=== PATIENT | male | born 1930 | race Caucasian/White ===

== ENCOUNTER 2019-09-18 10:23 | Emergency (ER) | payer OTHER ==
[2019-09-18] MEDS ORDERED: TRAMADOL HCL 50 MG TAB ONE (11:36)
--- NOTE | 2019-09-18 14:15 | RAD REPORT ---
EXAM DESCRIPTION: MRI - Hip Left Wo Cont - 09/18/2019 1:41 pm CLINICAL HISTORY: Left hip pain COMPARISON: none TECHNIQUE: Axial, sagittal, and coronal magnetic images of the left hip obtained FINDINGS: T1 weighted sequences demonstrate diminished signal throughout the bones probably red catracho ow reconversion. No fracture or dislocation No evidence of avascular necrosis. Mild osteoarthritis involves the hips mainly consisting joint space narrowing. No significant joint effusion Muscles normal caliber and signal IMPRESSION: Mild osteoarthritis involves the hips
--- NOTE | 2019-09-18 14:37 | EDPHYS ---
Physician Documentation [facility] Name: Chris Collins Age: 89 yrs Sex: Male : 1930 Arrival Date: 09/18/2019 Time: 10:25 Bed 13 Private MD: ED Physician Tom Agustin HPI: 09/17 12:05 This 89 yrs old Male presents to ER via Wheelchair with complaints of Hip kb Pain. 12:05 The patient or guardian reports pain. that occurred at home, sustained from no cause kb There is no obvious deformity, The patient is able to self ambulate. The patient is able to bear their full body weight. The patient's discomfort radiates to the left leg. The complaints affect the left gluteus rubén. Onset: The symptoms/episode began/occurred 2 week(s) ago. Modifying factors: The symptoms are alleviated by nothing, the symptoms are aggravated by nothing. Associated signs and symptoms: Loss of consciousness: the patient experienced no loss of consciousness, Pertinent positives: None. Pertinent negatives: altered mental status, fever, incontinence, weakness. Severity of symptoms: At their worst the symptoms were moderate, in the emergency department the symptoms are unchanged. The patient has not experienced similar symptoms in the past. The patient has not recently seen a physician. Pt reports he stepped out of bed 2 weeks ago and felt like he got hit in the left buttock with a hammer. States the pain has persisted since then to left buttock/left lateral hip. States the pain radiates down leg at times. Denies any other symptoms. Pt ambulatory with cane. . Historical: - Allergies: 11:06 No Known Allergies; jl7 - Home Meds: 11:06 amlodipine 5 mg tab [Active]; jl7 - PMHx: 11:06 Hypertension; lung cancer; jl7 - PSHx: 11:06 Lobectomy; jl7 - Immunization history:: Adult Immunizations up to date. - Social history:: Smoking status: Patient denies any tobacco usage or history of. ROS: 12:02 Constitutional: Negative for fever, chills, and weight loss, ENT: Negative for injury, kb pain, and discharge, Neck: Negative for injury, pain, and swelling, Cardiovascular: Negative for chest pain, palpitations, and edema, Respiratory: Negative for shortness of breath, cough, wheezing, and pleuritic chest pain, Abdomen/GI: Negative for abdominal pain, nausea, vomiting, diarrhea, and constipation, Back: Negative for injury and pain, : Negative for injury, bleeding, discharge, and swelling, Skin: Negative for injury, rash, and discoloration, Neuro: Negative for headache, weakness, numbness, tingling, and seizure. 12:02 MS/extremity: Positive for pain, tenderness, of the left gluteus rubén. Exam: 12:02 Constitutional: This is a well developed, well nourished patient who is awake, alert, kb and in no acute distress. Chest/axilla: Normal chest wall appearance and motion. Nontender with no deformity. No lesions are appreciated. Cardiovascular: Regular rate and rhythm with a normal S1 and S2. No gallops, murmurs, or rubs. Normal PMI, no JVD. No pulse deficits. Respiratory: Lungs have equal breath sounds bilaterally, clear to auscultation and percussion. No rales, rhonchi or wheezes noted. No increased work of breathing, no retractions or nasal flaring. Abdomen/GI: Soft, non-tender, with normal bowel sounds. No distension or tympany. No guarding or rebound. No evidence of tenderness throughout. Skin: Warm, dry with normal turgor. Normal color with no rashes, no lesions, and no evidence of cellulitis. Neuro: Awake and alert, GCS 15, oriented to person, place, time, and situation. Cranial nerves II-XII grossly intact. Motor strength 5/5 in all extremities. Sensory grossly intact. Cerebellar exam normal. Normal gait. 12:02 Musculoskeletal/extremity: Extremities: grossly normal except: noted in the left gluteus rubén: pain, tenderness, ROM: intact in all extremities, Circulation is intact in all extremities. Sensation intact. Weight bearing: can bear weight with assistance only, uses cane. Vital Signs: 11:01 BP 142 / 94; Pulse 50; Resp 19; Temp 98.2; Pulse Ox 99% ; Pain 10/10; jl7 MDM: 11:08 Patient medically screened. kb 12:00 Data reviewed: vital signs, nurses notes. Data interpreted: Pulse oximetry: on room air kb is 99 %. Interpretation: normal. 14:31 Counseling: I had a detailed discussion with the patient and/or guardian regarding: the kb historical points, exam findings, and any diagnostic results supporting the discharge/admit diagnosis, radiology results, the need for outpatient follow up, a family practitioner, to return to the emergency department if symptoms worsen or persist or if there are any questions or concerns that arise at home. 09/17 12:07 Order name: Hip Left Wo Cont; Complete Time: 14:31 EDMS Administered Medications: 11:33 Drug: traMADol 50 mg Route: PO; iw Disposition: 16:16 Co-signature as Attending Physician, Tom Agustin MD I agree with the assessment and kdr plan of care. Disposition: 09/18/19 14:36 Discharged to Home. Impression: Sciatica, left side. - Condition is Stable. - Discharge Instructions: Sciatica, [id number]. - Prescriptions for Skelaxin 800 mg Oral Tablet - take 1 tablet by ORAL route every 8 hours As needed; 30 tablet. Tramadol 50 mg Oral Tablet - take 1 tablet by ORAL route every 8 hours as needed; 12 tablet. - Medication Reconciliation Form, Thank You Letter, Antibiotic Education, Prescription Opioid Use form. - Follow up: Emergency Department; When: As needed; Reason: Worsening of condition. Follow up: Private Physician; When: 2 - 3 days; Reason: Recheck today's complaints, Continuance of care, Re-evaluation by your physician. Signatures: Dispatcher [employer] EDCA Caitie Navarrete, ELECTRIC POWER SUPERINTENDENT-C ELECTRIC POWER SUPERINTENDENT-Ckb Tom Agustin MD MD kdr Danette Walter RN RN Lynne Mayorga RN RN jl7 Cristiano Velez formerly [facility] Corrections: (The following items were deleted from the chart) 12:02 11:53 CT LEFT HIP WO CONTRAST ordered. [facility] 12:05 12:02 Hip Left Wo Con ordered. [facility] 12:09 11:20 Hip Left 2 View+RAD.RAD.BRZ ordered. [facility] 14:56 14:36 09/18/2019 14:36 Discharged to Home. Impression: Sciatica, left side. Condition dh4 is Stable. Forms are Medication Reconciliation Form, Thank You Letter, Antibiotic Education, Prescription Opioid Use. Follow up: Emergency Department; When: As needed; Reason: Worsening of condition. Follow up: Private Physician; When: 2 - 3 days; Reason: Recheck today's complaints, Continuance of care, Re-evaluation by your physician. kb
--- NOTE | 2019-09-18 14:37 | ER ---
Nurse's Notes [facility] Name: Chris Collins Age: 89 yrs Sex: Male : 1930 Arrival Date: 09/18/2019 Time: 10:25 Bed 13 Private MD: Diagnosis: Sciatica, left side Presentation: 09/17 11:01 Chief complaint: Patient states: Left hip pain x 2 weeks, denies trauma, reports jl7 difficulty bearing weight. Coronavirus screen: Proceed with normal triage. Patient denies a cough. Patient denies shortness of breath or difficulty breathing. Patient denies measured and/or subjective temperature greater than 100.4F prior to today's visit. Patient denies travel on a cruise ship or to a country the [facility] currently lists as an affected area. Patient denies contact with known and/or suspected case of COVID-19. Ebola Screen: No symptoms or risks identified at this time. Initial Sepsis Screen: Does the patient meet any 2 criteria? No. Patient's initial sepsis screen is negative. Does the patient have a suspected source of infection? No. Patient's initial sepsis screen is negative. Risk Assessment: Do you want to hurt yourself or someone else? Patient reports no desire to harm self or others. Onset of symptoms was September 02, 2019. Care prior to arrival: None. 11:01 Method Of Arrival: Wheelchair jl7 11:01 Acuity: ANASTASIA 4 jl7 Triage Assessment: 11:06 General: Appears in no apparent distress. uncomfortable, Behavior is calm, cooperative, jl7 appropriate for age. Pain: Complains of pain in left hip Pain currently is 10 out of 10 on a pain scale. Historical: - Allergies: 11:06 No Known Allergies; jl7 - Home Meds: 11:06 amlodipine 5 mg tab [Active]; jl7 - PMHx: 11:06 Hypertension; lung cancer; jl7 - PSHx: 11:06 Lobectomy; jl7 - Immunization history:: Adult Immunizations up to date. - Social history:: Smoking status: Patient denies any tobacco usage or history of. Screenin:38 Abuse screen: Denies threats or abuse. Denies injuries from another. Nutritional iw screening: No deficits noted. Tuberculosis screening: No symptoms or risk factors identified. Fall Risk None identified. Assessment: 11:38 General: Appears in no apparent distress. comfortable, Behavior is calm, cooperative. iw Pain: Complains of pain in left lower back. Neuro: Level of Consciousness is awake, alert, obeys commands, Oriented to person, place, time, situation, Moves all extremities. Full function. Cardiovascular: Patient's skin is warm and dry. Respiratory: Respiratory effort is even, unlabored, Respiratory pattern is regular, symmetrical. GI: No signs and/or symptoms were reported involving the gastrointestinal system. Derm: Skin is intact, is healthy with good turgor. Musculoskeletal: Range of motion: intact in all extremities, Reports pain in left hip. 13:00 Reassessment: Patient appears in no apparent distress at this time. Patient and/or iw family updated on plan of care and expected duration. Pain level reassessed. Patient is alert, oriented x 3, equal unlabored respirations, skin warm/dry/pink. Vital Signs: 11:01 BP 142 / 94; Pulse 50; Resp 19; Temp 98.2; Pulse Ox 99% ; Pain 10/10; jl7 ED Course: 10:25 Patient arrived in ED. ag5 10:26 Caitie Navarrete FNP-C is [facility]. kb 10:26 Tom Agustin MD is Attending Physician. kb 11:03 Triage completed. jl7 11:06 Arm band placed on right wrist. jl7 11:27 Danette Walter, RN is Primary Nurse. iw 11:38 Patient has correct armband on for positive identification. iw 13:18 Hip Left Wo Cont In Process Unspecified. EDMS 14:55 No provider procedures requiring assistance completed. Patient did not have IV access iw during this emergency room visit. Administered Medications: 11:33 Drug: traMADol 50 mg Route: PO; iw Outcome: 14:36 Discharge ordered by MD. kb 14:55 Discharged to home ambulatory. iw 14:55 Condition: good 14:55 Discharge instructions given to patient, Instructed on discharge instructions, follow up and referral plans. medication usage, Demonstrated understanding of instructions, follow-up care, medications, Prescriptions given X 2. 14:56 Patient left the ED. 4 Signatures: Dispatcher [employer] EDMN Caitie Navarrete FNP-C FNP-Danette Thurston RN RN Lynne Mayorga RN RN jl7 Elayne Knowles ag5 Rosie, Cristiano dh4
[2019-09-18 15:01] VITALS: BP 142/94; TEMP 98.2; O2SAT 99
== END 2019-09-18 14:56 | disposition home or self-care (01) ==
LOC: ER 10:23
DX: M54.32 Sciatica, left side (principal); Z85.118 Personal history of other malignant neoplasm of bronchus and lung; I10 Essential (primary) hypertension
CPT/HCPCS: 99283